=== PATIENT | female | born 1980 | race Two or more races ===

== ENCOUNTER 2018-10-25 09:15 | Inpatient (IN) | payer BC ==
[~2018-10-25 09:15] MED LIST: Buffered Lidocaine 1% SYRIN* 1 ML/SYRINGE INTRADERM ONE; Famotidine IV* 10 MG/ML 2 ML (20 mg) IV ONE; Lactated Ringers 1000 ML Bag* 1,000 ML IV SCH
[2018-10-25] MEDS ORDERED: ceFAZolin 2 GM in NS PREMIX(*) 2 GM/100 ML BAG IVPB ONE (09:29)
[2018-10-25] MEDS ORDERED: Famotidine IV* 10 MG/ML 2 ML (20 mg) ONE (09:29)
[2018-10-25] MEDS ORDERED: Heparin VIAL(*) 5000 UNITS/ML VIAL (FIVE THOUSAND) ONE (09:29)
[2018-10-25] MEDS ORDERED: ceFAZolin 1 GM ADVAN(*) 1 GM ADDV.VIAL IVPB ONE (09:29)
[2018-10-25] MEDS ORDERED: Midazolam* 1 MG/ML 5 ML VIAL (5 MG) ONE (10:49)
[2018-10-25] MEDS ORDERED: fentaNYL* 50 MCG/ML 2 ML VIAL (100 MCG VIAL) ONE ×2 (10:49→12:51)
[2018-10-25] MEDS ORDERED: Rocuronium* 10 MG/ML VIAL ONE ×2 (10:49→12:08)
[2018-10-25] MEDS ORDERED: Methylene Blue 0.5 %* 50 MG/10 ML AMP IV ONE (11:32)
[2018-10-25] MEDS ORDERED: Bupivacaine 0.25% EPI 200,000* 30 ML SDV ONE (11:32)
[2018-10-25] MEDS ORDERED: Ketorolac INJ* 30 MG/ML 1 ML VIAL ONE ×2 (12:42→14:28)
[2018-10-25] MEDS ORDERED: EPHEDrine (Pressors)* 50 MG/ML VIAL ONE (12:42)
[2018-10-25] MEDS ORDERED: Ondansetron INJ* 2 MG/ML VIAL ONE (12:42)
[2018-10-25] MEDS ORDERED: DiMENhydriNATE IV* 50 MG/ML VIAL ONE (12:42)
[2018-10-25] MEDS ORDERED: Dexamethasone IV* 4 MG/ML 1 ML (4 MG) ONE (12:42)
[2018-10-25] MEDS ORDERED: Scopolamine 1.5 mg* PATCH ONE (12:43)
[2018-10-25] MEDS ORDERED: Acetaminophen IV 1GM/100ML * 1,000 MG/100 ML VIAL IVPB ONE (13:25)
[2018-10-25] MEDS ORDERED: DiMENhydriNATE IV* 50 MG/ML VIAL IV PUSH PRN (13:25)
[2018-10-25] MEDS ORDERED: Naloxone* 0.4 MG/ML 1 ML VIAL IV PRN (13:25)
[2018-10-25] MEDS ORDERED: HYDROmorphone INJ1* 1 MG/ML SYRINGE ONE ×3 (14:08→15:33)
[2018-10-25] MEDS ORDERED: Propofol* 10 MG/ML 20 ML BTL ONE (14:31)
[2018-10-25] MEDS ORDERED: Acetaminophen IV 1GM/100ML * 100 ML ONE (14:57)
[2018-10-25] MEDS: HYDROmorphone INJ1* 1 MG/ML SYRINGE IV PRN ×5 (14:59→15:20)
[2018-10-25] MEDS ORDERED: Acetaminophen ADULT LIQ* 650 MG/20.3 ML UDC PO PRN (15:00)
[2018-10-25] MEDS ORDERED: HYDROmorphone INJ1* 1 MG/ML SYRINGE IV SLOW PU PRN ×2 (15:00→15:08)
[2018-10-25] MEDS ORDERED: diPHENhydraMINE IV* 50 MG/ML 1 ml VIAL (BENADRYL) SLOW PUSH PRN (15:00)
--- NOTE | 2018-10-25 15:00 | OP ---
Operative Report - Blank - Operative Report Date of Operation: 10/25/18 Note: Brief Operative Note Preop Dx: morbid obesity Postop Dx: same Procedure: laparoscopic merlin en y gastric bypass Anesthesia: GET Surgeon: José Miguel Skip Miner: GILSON Singh; LAKISHA Easley Fluids: 2700 ml RL EBL: < 50 ml Specimen: none Drains: none Findings: dictated
[2018-10-25] MEDS ORDERED: traMADol TAB* 50 MG PO PRN (15:08)
[2018-10-25] MEDS ORDERED: Albuterol HFA INHALER* 8 gm MDI INH PRN (15:11)
[2018-10-25] MEDS ORDERED: FLUTICASONE 44 MCG INH PRN (15:11)
[2018-10-25] MEDS ORDERED: MDI INH PRN (15:11)
[2018-10-25] MEDS: HYDROmorphone INJ* 0.5 MG/0.5 ML SYRINGE IV SLOW PU PRN ×3 (15:39→16:12)
[2018-10-25] MEDS ORDERED: HYDROmorphone INJ* 0.5 MG/0.5 ML SYRINGE ONE (16:11)
[2018-10-25] MEDS: Ondansetron INJ* 2 MG/ML VIAL IV PRN ×2 (17:31→23:55)
[2018-10-25] MEDS: Lactated Ringers 1000 ML Bag* 1,000 ML IV SCH (17:35)
[2018-10-25] MEDS: Famotidine IV* 10 MG/ML 2 ML (20 mg) IV SLOW PU SCH (19:44)
[2018-10-25] MEDS: Ketorolac INJ* 30 MG/ML 1 ML VIAL IV PRN (19:58)
[2018-10-25] MEDS: Heparin VIAL(*) 5000 UNITS/ML VIAL (FIVE THOUSAND) SUBCUT SCH (22:09)
[2018-10-26] MEDS: Lactated Ringers 1000 ML Bag* 1,000 ML IV SCH ×2 (00:07→06:11)
[2018-10-26] MEDS: Ketorolac INJ* 30 MG/ML 1 ML VIAL IV PRN ×3 (06:03→20:25)
[2018-10-26] MEDS: Heparin VIAL(*) 5000 UNITS/ML VIAL (FIVE THOUSAND) SUBCUT SCH ×3 (06:05→22:10)
--- NOTE | 2018-10-26 08:51 | OP ---
: [facility]; Jhonny Ramirez MD * DATE OF OPERATION: 10/25/18 - ROOM #351 DATE OF : 80 SURGEON: Dr. Valdez. OPERATION AGENT: GILSON Salazar ANESTHESIOLOGIST: Rosita Solomon MD ANESTHESIA: General endotracheal. PRE-OP DIAGNOSIS: Clinically severe obesity. POST-OP DIAGNOSIS: Clinically severe obesity. OPERATIVE PROCEDURE: Laparoscopic Neelam-en-Y gastric bypass. ESTIMATED BLOOD LOSS: Less than 50 mL. IV FLUIDS: 2.7 L crystalloid. SPECIMENS: None. DRAINS: None. COMPLICATIONS: None. COUNTS: The instrument, needle, and sponge counts were correct. DESCRIPTION OF PROCEDURE: The patient was brought to the operating room and placed on the table supine. Sequential compression devices were placed on both lower extremities and general anesthesia was administered. The patient was positioned and padded appropriately and then administered intravenous antibiotics. He was prepped and draped in the usual sterile fashion. A time- out was then performed. Local anesthetic was infiltrated into the skin and soft tissue prior to making each incision. Entry into the abdomen was through a left upper quadrant incision made to accommodate a 12 mm optical trocar. After accessing the peritoneal cavity, carbon dioxide was insufflated to a pressure of 15 mmHg. Under direct visualization, a 12 mm bladeless trocars were placed in the supraumbilical midline and in the right upper quadrant. 5 mm trocars were placed in the right upper quadrant medially and left upper quadrant laterally. A Molina liver retractor was placed percutaneously in the subxiphoid position and used to elevate the left lobe of the liver. Inspection of the abdominal cavity was performed and there was a moderate to small sized omentum. The gastric anatomy appeared normal. Inspection was performed in the pelvis to evaluate, at patient's request, concern for possible endometriosis. The patient's uterus appeared to be fibroid. The left adnexa had some adhesions to the sigmoid colon. These were sharply lysed. The left and right ovaries appeared normal. The uterus was elevated and inspection of the cul-de-sac was performed and there did not appear to be any endometriosis present. At this point, the operation proceeded with mobilization of the fundus of the stomach away from the left jess of the diaphragm. This was performed bluntly. I then went ahead and created in the lesser omentum a perigastric dissection on the lesser curvature, the lesser sac was entered, and then with gentle firings of the Endo KATE stapler with a stephen cartridges, the gastric pouches created and this approximated 15 to 30 mL volume. The staple lines were noted to be intact and hemostatic. Next, the omentum and transverse colon were retracted cephalad. The ligament of Treitz was identified and the loop of jejunum was measured out approximately 50 cm. This looped to the ligament of Treitz. The limb was oriented appropriately and it was sutured to the lateral left staple line on the gastric pouch with interrupted 2-0 silk sutures. Next, the gastrojejunal anastomosis was performed with the Endo KATE stapler with a 30 mm stephen cartridge. The common gastroenterotomy was then closed with 3-0 PDS over a 34-Malaysian gastric lavage tube. Lastly, the omega loop was divided to the left of the anastomosis to complete this. The anastomosis was then tested with methylene blue dye solution instilled through the gastric lavage tube, no leak was identified. The tube was withdrawn. The Neelam limb was then measured out 75 cm, and at this point, a functional end-to-side jejunojejunostomy was created with a a 60 mm stephen Endo KATE stapler. The common enterotomy was run closed with 3-0 PDS running from each end, tying in the middle of the defect. The mesenteric defect was then closed with interrupted [id number] 3-0 silks. Additional 3-0 silk was placed as anti-obstruction suture at the proximal portion of the anastomosis. Orientation of the Neelam limb was confirmed. Hemostasis was assured. Ports were removed under direct visualization as was the Molina liver retractor. Carbon dioxide was released. The incisions were closed with 4-0 Monocryl to approximate the skin. Steri-Strips were applied with dressing. The patient tolerated the procedure well, was extubated and transferred to recovery in stable condition. [id number]/[facility] #: [id number] SYDEN[facility]AM HOSPITALEmeka
[2018-10-26] MEDS: Famotidine IV* 10 MG/ML 2 ML (20 mg) IV SLOW PU SCH ×2 (09:05→20:31)
--- NOTE | 2018-10-26 13:34 | PN ---
Progress Note - Progress Note Date of Service: 10/26/18 SOAP: Subjective: Elsy reports she has abdominal pain that is 5/10, diffuse across her upper abdomen, and sore in quality. It is not exacerbated by movement or sipping on liquids. She was last given ketorolac at about 6 this morning, the patient reported this controlled her pain well until the last hour. She has been tolerating small amounts of clear liquids well, denied any nausea or vomiting. She has had some burning, which improved with pepcid. She has not yet had a bowel movement, unsure of flatus. She has been burping. She has been ambulating and doing laps every few hours. Denies chest pain, shortness of breath, and leg pain. Acetaminophen (Tylenol Adult Liq*) 650 mg PO Q6H PRN PRN Reason: Temp > 101 F Or Mild Pain Albuterol (Ventolin Hfa Inhaler*) 2 puff INH Q4H PRN PRN Reason: SOB/WHEEZING Diphenhydramine HCl (Benadryl Iv*) 25 mg SLOW PUSH Q6H PRN PRN Reason: ITCHING Famotidine (Pepcid Iv*) 20 mg IV SLOW PU BID [facility] Last Admin: 10/26/18 09:05 Dose: 20 mg Fluticasone Propionate (Flovent Hfa 44 Mcg(Nf)) 1 puff INH DAILY PRN PRN Reason: SOB/WHEEZING Heparin Sodium (Porcine) (Heparin Vial(*)) 5,000 units SUBCUT Q8HR [facility] Last Admin: 10/26/18 06:05 Dose: 5,000 units Hydromorphone HCl (Dilaudid Inj1s*) 0.5 mg IV SLOW PU Q3H PRN PRN Reason: Pain - Moderate Severe Hydromorphone HCl (Dilaudid Inj1s*) 1 mg IV SLOW PU Q3H PRN PRN Reason: PAIN - SEVERE Last Admin: 10/25/18 23:53 Dose: 1 mg Potassium Chloride/Dextrose (D5w 1/2 Ns Kcl 20 Meq 1000 Ml*) 1,000 mls @ 125 mls/hr IV PER RATE [facility] Lactated Ringer's (Lactated Ringers 1000 Ml Bag*) 1,000 mls @ 150 mls/hr IV PER RATE [facility] Stop: 10/26/18 15:04 Last Admin: 10/26/18 06:11 Dose: 150 mls/hr Ketorolac Tromethamine (Toradol Inj*) 30 mg IV Q6H PRN PRN Reason: PAIN Stop: 10/27/18 15:04 Last Admin: 10/26/18 06:03 Dose: 30 mg Ondansetron HCl (Zofran Inj*) 4 mg IV Q6H PRN PRN Reason: NAUSEA/VOMITING Last Admin: 10/25/18 23:55 Dose: 4 mg Tramadol HCl (Ultram*) 50 mg PO Q6H PRN PRN Reason: moderate pain Objective: Vital Signs - 12 hr Temp Pulse Resp BP Pulse Ox 10/26/18 11:21 98.1 F 83 16 139/78 100 10/26/18 08:00 15 10/26/18 07:52 98.1 F 85 15 118/66 98 10/26/18 03:11 98.2 F 87 15 127/82 97 10/26/18 02:30 16 Intake & Output 10/24/18 10/25/18 10/26/18 10/27/18 06:59 06:59 06:59 06:59 Intake Total 3718 Output Total 2550 Balance 1168 Weight 247 lb Intake: IV Fluids 3718 LR 3718 Oral 0 Output: Urine 2550 Other: # Bowel Movements 0 Exam general: comfortable lying in bed, no acute distress, alert and oriented Heart: regular rate and rhythm, no murmur appreciated Lungs: symmetrical chest expansion, no increased effort, clear to auscultation bilaterally Abdomen: 6 laparoscopic incision sites c/d/i. hypoactive bowel sounds. tender to light palpation Extremities: no rashes, or ulcerations. Pedal pulses present. No calf tenderness Assessment: status post op day 1 laparoscopic merlin en y gastric bypass - stable, improving Plan: continue bariatric clears as tolerated. continue ambulating frequently. Continue PPI.
[2018-10-26] MEDS: D5W 1/2 NS KCl 20 Meq 1000 ML* 1,000 ML IV SCH (19:35)
[2018-10-27] MEDS: D5W 1/2 NS KCl 20 Meq 1000 ML* 1,000 ML IV SCH (03:30)
[2018-10-27] MEDS: Heparin VIAL(*) 5000 UNITS/ML VIAL (FIVE THOUSAND) SUBCUT SCH (06:05)
[2018-10-27 07:31] VITALS: BP 118/72
[2018-10-27] MEDS: Famotidine IV* 10 MG/ML 2 ML (20 mg) IV SLOW PU SCH (08:12)
--- NOTE | 2018-10-27 08:15 | PN ---
Progress Note - Progress Note Date of Service: 10/27/18 SOAP: Subjective: Elsy reports feeling better than yesterday. She reports her abdominal pain has decreased to about 3/10 qualifying it as soreness, this is tolerable to her. She denies nausea, vomiting, and diarrhea. She has been tolerating clear liquids well, and increased her rate after nursing reminded her. GERD well managed with pepcid. She reports flatus, no bowel movement. She reports an intermittent "wet cough" which started yesterday evening. Denies pain with inspiration. She denies shortness of breath and chest pain. She has been ambulating frequently and wearing the SCDs when in bed. Acetaminophen (Tylenol Adult Liq*) 650 mg PO Q6H PRN PRN Reason: Temp > 101 F Or Mild Pain Albuterol (Ventolin Hfa Inhaler*) 2 puff INH Q4H PRN PRN Reason: SOB/WHEEZING Diphenhydramine HCl (Benadryl Iv*) 25 mg SLOW PUSH Q6H PRN PRN Reason: ITCHING Famotidine (Pepcid Iv*) 20 mg IV SLOW PU BID [facility] Last Admin: 10/26/18 20:31 Dose: 20 mg Fluticasone Propionate (Flovent Hfa 44 Mcg(Nf)) 1 puff INH DAILY PRN PRN Reason: SOB/WHEEZING Heparin Sodium (Porcine) (Heparin Vial(*)) 5,000 units SUBCUT Q8HR [facility] Last Admin: 10/27/18 06:05 Dose: 5,000 units Hydromorphone HCl (Dilaudid Inj1s*) 0.5 mg IV SLOW PU Q3H PRN PRN Reason: Pain - Moderate Severe Hydromorphone HCl (Dilaudid Inj1s*) 1 mg IV SLOW PU Q3H PRN PRN Reason: PAIN - SEVERE Last Admin: 10/25/18 23:53 Dose: 1 mg Potassium Chloride/Dextrose (D5w 1/2 Ns Kcl 20 Meq 1000 Ml*) 1,000 mls @ 125 mls/hr IV PER RATE [facility] Last Admin: 10/27/18 03:30 Dose: 125 mls/hr Ketorolac Tromethamine (Toradol Inj*) 30 mg IV Q6H PRN PRN Reason: PAIN Stop: 10/27/18 15:04 Last Admin: 10/26/18 20:25 Dose: 30 mg Ondansetron HCl (Zofran Inj*) 4 mg IV Q6H PRN PRN Reason: NAUSEA/VOMITING Last Admin: 10/25/18 23:55 Dose: 4 mg Tramadol HCl (Ultram*) 50 mg PO Q6H PRN PRN Reason: moderate pain Objective: Vital Signs - 12 hr Temp Pulse Resp BP Pulse Ox 10/27/18 07:41 14 94 10/27/18 07:31 98.4 F 88 14 118/72 94 10/27/18 05:43 93 10/27/18 03:30 98.6 F 90 15 116/74 93 10/26/18 23:29 98.3 F 96 15 126/71 94 Intake & Output 10/25/18 10/26/18 10/27/18 10/28/18 06:59 06:59 06:59 06:59 Intake Total 3718 3530 Output Total 2550 3700 0 Balance 1168 -170 0 Weight 247 lb Intake: IV Fluids 3718 2960 LR 3718 2960 Oral 0 570 Output: Urine 2550 3700 0 Other: # Bowel Movements 0 0 Exam: General: comfortable lying in bed, NAD, alert and oriented Heart: regular rate an rhythm, no murmur appreciated Lungs: symmetrical chest expansion, no increased effort of breathing, clear to auscultation bilaterally Abdomen: round and soft, 6 incision sites clean, dry, and intact. mild tenderness to palpation. hypoactive bowel sounds present. Extremities: no edema, rashes, or ulceration. no calf tenderness. Assessment: Status postop day 2 merlin en y gastric bypass - steady improvement Plan: Continue bariatric clears. Continue ambulating frequently. Continue PPI. Discharge home today.
--- NOTE | 2018-10-27 10:09 | DS ---
CC: [facility]; Dr. Jhonny Ramirez * DISCHARGE SUMMARY: DATE OF ADMISSION: 10/25/18 DATE OF DISCHARGE: 10/27/18 ATTENDING SURGEON: Dr. Nakul Valdez * (GILSON Salazar, dictating). HOSPITAL COURSE: Please refer to admission history and physical and operative note for details. Briefly, the patient was taken to the operating room on 10/[address] Valdez and underwent laparoscopic Neelam-en-Y gastric bypass. Surgery itself and postoperative course had been unremarkable. She has gradually progressed in terms of intake of bariatric clear liquids. Pain has been under good control. The patient was seen on the morning of discharge by Dr. Valdez. She was deemed ready for discharge. She will continue her usual omeprazole, but hold her cholestyramine. Instructions have been reviewed regarding wound care, diet, and activity. She has a followup scheduled next week at [facility]. She is discharged to home in good condition. GILSON SALAZAR [id number]/[facility] #: [id number] MTDD
== END 2018-10-27 11:15 | disposition home or self-care (01) | DRG 403 ==
LOC: AA 09:15 → SSU 17:08
PROVIDERS: ADMIT Surgery; ATTEND Surgery
PROC: 0D164ZA Bypass Stomach to Jejunum, Percutaneous Endoscopic Approach (ICD-10-PCS; principal; 2018-10-25 11:00)
DX: E66.01 Morbid (severe) obesity due to excess calories (principal); Z68.41 Body mass index [BMI] 40.0-44.9, adult; K21.9 Gastro-esophageal reflux disease without esophagitis; F41.9 Anxiety disorder, unspecified; K58.9 Irritable bowel syndrome, unspecified; F32.9 Major depressive disorder, single episode, unspecified; I83.90 Asymptomatic varicose veins of unspecified lower extremity; J45.909 Unspecified asthma, uncomplicated; Z90.49 Acquired absence of other specified parts of digestive tract; Z82.49 Family history of ischemic heart disease and other diseases of the circulatory system; Z88.5 Allergy status to narcotic agent; Z91.013 Allergy to seafood; Z91.018 Allergy to other foods; Z83.49 Family history of other endocrine, nutritional and metabolic diseases; Z87.891 Personal history of nicotine dependence; Z87.440 Personal history of urinary (tract) infections
CPT/HCPCS: 43644; 81025; A9270-GY; C1776; J0690; J1100; J1170; J1240; J1644; J1885; J2250; J2405; J2704; J3010

== ENCOUNTER 2021-06-10 00:27 | Inpatient (IN) ==
[2021-06-10 01:34] LABS: ABS Eosinophils 0.1 10^3/ul (0-0.6); ABS Lymphocytes 1.6 10^3/ul (1.0-4.8); ABS Monocytes 0.4 10^3/ul (0-0.8); ABS Neutrophils 5.6 10^3/ul (1.5-7.7); Eosinophil % 1.7 %; Hematocrit 38 % (35-47); Hemoglobin 12.7 g/dL (12.0-16.0); Lymphocyte % 20.3 %; Mean Corpuscular HGB Conc 34 g/dL (31-36); Mean Corpuscular Hemoglobin 32 pg (27-31); Mean Corpuscular Volume 93 fL (80-97); Mean Platelet Volume 8.8 fL (7.4-10.4); Platelet Count 296 10^3/uL (150-450); Red Blood Count 4.02 10^6 /uL (3.70-4.87); Red Cell Distribution Width 14 % (10-15); White Blood Count 7.8 10^3/uL (3.5-10.8)
[2021-06-10 01:43] LABS: Urine Appearance Cloudy; Urine Bilirubin Negative (Negative); Urine Blood Negative (Negative); Urine Color Yellow; Urine Glucose Negative (Negative); Urine Ketones Trace (Negative); Urine Nitrite Negative (Negative); Urine Protein 1+(30 mg/dL) (Negative); Urine Specific Gravity 1.031 (1.002-1.030); Urine Urobilinogen Negative (Negative)
[2021-06-10 01:47] LABS: Urine Bacteria 1+ (Absent); Urine Red Blood Cell 1+(3-5/hpf) (Absent); Urine Squamous Epithelial Cell Present (Absent); Urine White Blood Cell 1+(6-10/hpf) (Absent)
[2021-06-10 01:50] LABS: ALT 15 U/L (7-52); AST 17 U/L (13-39); Albumin 4.1 g/dL (3.2-5.2); Albumin/Globulin Ratio 1.6 (1-3); Alkaline Phosphatase 52 U/L (35-149); Anion Gap 6 mmol/L (2-11); Blood Urea Nitrogen 17 mg/dL (6-24); CO2 Carbon Dioxide 27 mmol/L (22-32); Calcium 9.2 mg/dL (8.6-10.3); Chloride 103 mmol/L (101-111); Globulin 2.5 g/dL (2-4); Glucose 108 mg/dL (70-100); Potassium 3.6 mmol/L (3.5-5.0); Sodium 136 mmol/L (135-145); Total Protein 6.6 g/dL (6.4-8.9); eGFR CKD-EPI 111.7 (>60)
[2021-06-10 01:51] LABS: Urine Benzodiazepine Screen None Detected (None Detect); Urine Cannabinoids Screen None Detected (None Detect); Urine Opiates Screen None Detected (None Detect)
[2021-06-10 02:13] LABS: Acetaminophen < 15 mcg/mL; Alcohol, S < 13 mg/dL (<13); Salicylate < 2.50 mg/dL (<30)
[2021-06-10 02:29] LABS: TSH Ultra Thyroid Stim Horm 1.17 mcIU/mL (0.34-5.60)
[2021-06-10] MEDS ORDERED: Al Hydrox/Mg Hydrox/Simet LIQ 30 ML UDC PO PRN (08:16)
[2021-06-10] MEDS ORDERED: buPROPion SR 100 mg TAB.SR PO SCH (11:00)
[2021-06-10 11:54] LABS: HCG Pregnancy < 0.60 mIU/mL
[2021-06-10] MEDS: Vitamin THERAPEUTIC TAB PO SCH (15:07)
[2021-06-10] MEDS: Mometasone/Formoter 200/5 MDI INH SCH (21:32)
[2021-06-11] MEDS: Mometasone/Formoter 200/5 MDI INH SCH ×3 (09:48→19:35)
[2021-06-11] MEDS: Vitamin THERAPEUTIC TAB PO SCH (09:52)
[2021-06-11] MEDS: [UNRECOGNIZED DRUG - OTHER] PO SCH (09:54)
[2021-06-12 08:27] VITALS: BP 117/64
[2021-06-12] MEDS: Mometasone/Formoter 200/5 MDI INH SCH (09:03)
[2021-06-12] MEDS: Vitamin THERAPEUTIC TAB PO SCH (09:04)
[2021-06-12] MEDS: [UNRECOGNIZED DRUG - OTHER] PO SCH (09:05)
== END 2021-06-12 11:00 | disposition home or self-care (01) | DRG 751 ==
LOC: ED 00:27 → BSU 09:16
PROVIDERS: ADMIT Psychiatry & Neurology Psychiatry; ATTEND Psychiatry & Neurology Psychiatry